=== PATIENT | male | born 1965 | race Caucasian/White ===

== ENCOUNTER 2023-06-30 11:32 | Outpatient (CLI) | payer BC, SELFPAY ==
--- NOTE | 2023-06-30 11:51 | XR_ITS ---
WS: [id number] Exam: XR knee RT 3V* [id number] Date/Time of Exam: 06/30/2023 12:13 PM Reason For Exam: Right knee pain, Swelling of joint Comparison 01/22/2018. No fracture or dislocation. No joint effusion. Mild narrowing of the medial joint compartment. Anteri or soft tissue edema noted just below the level of the patella. IMPRESSION: 1. No fracture or joint effusion. Anterior soft tissue swelling. 2. Slight narrowing of the medial joint compartment.
== END 2023-06-30 11:33 | disposition home or self-care (01) ==
PROVIDERS: PCP Nurse Practitioner Family; Visit Provider Nurse Practitioner Family
DX: M25.561 Pain in right knee (principal); M79.89 Other specified soft tissue disorders
CPT/HCPCS: 73562

== ENCOUNTER → 2023-07-15 15:54 | Outpatient (BNVA) | payer BC, SELFPAY | PROVIDERS: PCP Nurse Practitioner Family; Visit Provider Orthopaedic Surgery | DX: M48.061 Spinal stenosis, lumbar region without neurogenic claudication (principal); M48.07 Spinal stenosis, lumbosacral region; M43.16 Spondylolisthesis, lumbar region; M25.78 Osteophyte, vertebrae | CPT/HCPCS: 72100 ==

== ENCOUNTER 2023-08-12 15:36 | Outpatient (CLI) | payer BC, SELFPAY ==
--- NOTE | 2023-08-12 16:00 | MR_ITS ---
WS: [id number] MRI LUMBAR SPINE NONCONTRAST TECHNIQUE: Sagittal T1, T2 and STIR imaging. Axial T1 and T2 imaging. CLINICAL INFORMATION: lumbar pain COMPARISON: MRI 2019 FINDINGS: Mild disc bulging C4-C6 with indentation on the cervical cord and mild to moderate central canal sten osis. Mild lumbar curve. No acute compression. Disc bulging worse at L3-L4 and L4-L5. Disc bulging L3-4 has progressed. Central disc protrusion L5-S1. L1-L2: Mild facet arthropathy. Spinal canal and foramen are patent. L2-L3: No significant disc bulging. Mild facet arthropathy. Spinal canal and foramen are patent. L3-L4: Shallow central and RIGHT paracentral disc protrusion impinges the RIGHT subarticular recess a nd traversing RIGHT L4 nerve root. Moderate to severe central canal stenosis. Moderate facet arthropa thy. Mild RIGHT greater than LEFT foraminal narrowing with small foraminal protrusions. Central canal stenosis has progressed at this level. L4-L5: Central and LEFT paracentral disc protrusion with moderate central canal stenosis. Impingement of traversing LEFT greater than L5 nerve roots. Moderate facet arthropathy. Mild bilateral foraminal narrowing. L5-S1: Shallow central disc protrusion with slight effacement of the ventral thecal sac. Mild facet a rthropathy. LEFT eccentric disc osteophyte complex with moderate LEFT foraminal narrowing. RIGHT fora men is patent. Impingement of the traversing LEFT greater than RIGHT S1 nerve roots. Moderate facet a rthropathy. Visualized pelvic bony structures: Normal. Paravertebral soft tissues: Normal. IMPRESSION: 1. Moderate to severe central canal stenosis L3-4 progressed compared to previous. Impingement of tr aversing RIGHT greater than LEFT L4 nerve roots with RIGHT paracentral protrusion. 2. Moderate central canal stenosis L4-5 has progressed with impingement on the traversing LEFT great er than RIGHT L5 nerve roots. 3. Shallow central disc protrusion L5-S1 impinges the LEFT S1 nerve root in the subarticular recess. This also appears slightly progressed compared to previous. 4. Moderate LEFT L5-S1 foraminal narrowing. 5. Moderate facet arthropathy L3-L5. 6. Central disc protrusions in the cervical spine suction plate roller hand imaging at C4-C6 with mild to moderate centr al canal stenosis and indentation of the cervical cord. This can be further evaluated with cervical s pine MRI.
== END 2023-08-12 15:37 | disposition home or self-care (01) ==
LOC: RAD 15:37
PROVIDERS: PCP Nurse Practitioner Family; Visit Provider Orthopaedic Surgery
DX: M48.061 Spinal stenosis, lumbar region without neurogenic claudication (principal); M51.27 Other intervertebral disc displacement, lumbosacral region; M50.221 Other cervical disc displacement at C4-C5 level; M50.222 Other cervical disc displacement at C5-C6 level
CPT/HCPCS: 72148

== ENCOUNTER 2023-08-27 16:33 | Outpatient (CLI) | payer BC, SELFPAY ==
[2023-08-27 18:32] LABS: Add Urine Microscopic? NO; Charge for UA Resulting for Rev
[2023-08-27 18:44] LABS: Bilirubin Urine Neg (Negative); Blood Urine Neg (Negative); Glucose Urine UA Norm (Normal); Ketones Urine Negative (Negative); Leukocyte Esterase Urine Negative (Negative); Nitrate Urine Negative (Negative); Protein Urine Neg (Negative); Specific Gravity, Urine 1.015 (1.005-1.030); Urine Appearance Clear (CLEAR); Urine Color Yellow (Yellow); Urobilinogen Urine Norm (Negative); pH Urine 6 (5-7)
[2023-08-27 18:49] LABS: Basophils # 0.1 10^3/uL (0.0-0.1); Basophils % 0.9 %; Eosinophils # 0.3 10^3/uL (0.0-0.8); Eosinophils % 4.6 %; Hematocrit 42.2 % (37-53); Lymphocytes # 2.1 10^3/uL (0.8-4.8); Lymphocytes % 31.4 %; Mean Corpuscular HGB Conc 34.6 g/dL (30-55); Mean Corpuscular Hemoglobin 31.9 pg (27-33); Mean Corpuscular Volume 92.3 fl (82-101); Mean Platelet Volume 9.6 fL (7.4-10.4); Monocytes # 0.9 10^3/uL (0.2-0.9); Monocytes % 12.7 %; Neutrophils # 3.38 10^3/uL (1.8-7.7); Neutrophils % 49.8 %; Nucleated Red Blood Cells % 0 %; Platelet Count 209 10^3/cmm (157-399); Red Blood Count 4.57 10^6/uL (3.85-5.65); White Blood Count 6.78 10^3/uL (3.29-11.43)
[2023-08-27 19:03] LABS: Alanine Aminotransferase 87 U/L (0-41); Albumin Level 4.6 g/dL (3.5-5.2); Alkaline Phosphatase 60 U/L (40-130); Aspartate Amino Transferase 60 U/L (0-40); Blood Urea Nitrogen 15 mg/dL (6-20); Calcium 9.2 mg/dL (8.5-10.5); Carbon Dioxide 28 mmol/L (22-29); Globulin 2.6 g/dL (1.3-4.6); Glomerular Filtration Rate 68.5 mL/min (90-130); Glucose 95 mg/dL (65-115); Total Bilirubin 0.5 mg/dL (0.15-1.2); Total Protein 7.2 g/dL (6.6-8.7)
[2023-08-27 21:30] LABS: Anion Gap 12.3 (5-19); Chloride 104 mmol/L (98-107); Osmolality Calculated 291 mOsm/kg (285-295); Potassium 4.3 mmol/L (3.5-5.1); Sodium 140 mmol/L (136-145)
[2023-08-27 21:59] LABS: Estmated Average Glucose 120; Hemoglobin A1C 5.8 % (4.0-6.0)
== END 2023-08-27 16:34 | disposition home or self-care (01) ==
LOC: LAB 16:35
PROVIDERS: PCP Nurse Practitioner Family; Visit Provider Physician Assistant
DX: M48.062 Spinal stenosis, lumbar region with neurogenic claudication (principal); M51.36 Other intervertebral disc degeneration, lumbar region
CPT/HCPCS: 80053; 81003; 83036; 85025

== ENCOUNTER 2023-09-08 17:45 | Observation (INO) | payer BC, SELFPAY ==
[2023-09-08] VITALS (21 sets, daily range): BP systolic 90–148; BP diastolic 52–88; PULSE 50–94; RESP 14–22; TEMP 36.2–37.1; O2SAT 91–98; BMI 42.1
--- NOTE | 2023-09-08 10:07 | W.PM.OPSUD ---
Surgery/Procedure H&P Update DATE OF PROCEDURE: September 08, 2023 DATE H&P PERFORMED: 09/03/23 H&P UPDATE INFORMATION: I have reviewed H&P completed within last 30 days, I have examined patient prior to procedure and No changes to prior documentation PREOP DIAGNOSIS: Degenerative disc disease lumbar, lumbar stenosis PLANNED PROCEDURE: Operation Date: 09/08/23 11:00 Proposed Procedures p Spinal Fusion PSF L3 TO PELVIS(Not Applicable) - Josue Medina DO
[2023-09-08] MEDS: sodium chloride 0.9% 1,000 ML 30 ML IV (10:40)
[2023-09-08] MEDS: methadone 10 mg Tablet PO (10:43)
--- NOTE | 2023-09-08 12:17 | ANES.PREANE2 ---
Pre-Anesthetic Assessment Height/Weight: Height 1.7 m Weight 122 kg Temp Pulse Resp BP Pulse Ox O2 Del Method 97.6 F 50 L 16 138/88 96 Room Air 09/08/23 09:53 09/08/23 09:53 09/08/23 09:53 09/08/23 09:53 09/08/23 09:53 09/08/23 09:56 Preop Diagnosis: Degenerative disc disease lumbar, lumbar stenosis Operation Date: 09/08/23 11:00 Proposed Procedures p Spinal Fusion PSF L3 TO PELVIS(Not Applicable) - Josue Medina, DO Familial anesthetic complications: none Was Beta Manuel taken within 24 hours: N/A Was Clonidine taken within 24 hours: N/A Last intake: Intake Last Liquid Date 09/07/23 Last Liquid Time 21:00 Last Solid Date 09/07/23 Last Solid Time 18:00 Social No alcohol and No tobacco Exam alert, oriented x 3, clear to auscultation bilaterally and regular rate & rhythm Airway Submandibular: within normal limits Cervical ROM: within normal limits Mallampati: Class II Dentition: full Metabolic Morbid Obesity [facility] [place]/sk Lower Back Pain and Osteoarthritis/DJD Anesthetic Plan ASA status: 3 Anesthesia: General Medications/Allergies Home Medications Medication Instructions Recorded Confirmed Last Taken Type turmeric 400 mg capsule 400 mg PO DAILY 07/15/23 09/05/23 09/02/23 History cholecalciferol (vitamin D3) 25 25 mcg PO DAILY 09/03/23 09/05/23 09/02/23 History mcg (1,000 unit) capsule multivitamin 1 tab PO DAILY 09/03/23 09/05/23 09/02/23 History omega 5-hwy-onw-fish oil 300 1 cap PO DAILY 09/03/23 09/05/23 09/02/23 History mg-1,000 mg capsule (Fish Oil) Allergies Allergy/AdvReac Type Severity Reaction Status Date / Time No Known Allergies Allergy Verified 09/03/23 09:48 Current Medications Generic Name Dose Route Start Last Admin Trade Name Freq PRN Reason Stop Dose Admin Sodium Chloride 1,000 mls @ 30 mls/hr 09/08/23 09:45 09/08/23 10:40 Sodium Chloride 0.9% IV 09/09/23 09:44 30 mls/hr .Q24H SHANNON Administration Data Anesthesia Blood Bank 09/08/23 10:15 Blood Type O Positive Rho(D) Type Rh positive Antibody Screen Negative Cardiac Studies: No Data to Display
[2023-09-08] MEDS: ceFAZolin 2,000 MG in sodium chloride 0.9% (plus) 50 ML 100 MG IV ×2 (13:35→19:51)
[2023-09-08] MEDS: lidocaine-epi 1% PF 1:200,000 30 mL SDV 10 ML INJECTION (14:02)
[2023-09-08] MEDS: ceFAZolin 1,000 mg SDV 1000 MG IVP (14:08)
[2023-09-08] MEDS: vancomycin 1,000 MG SDV 1000 MG XX (14:20)
[2023-09-08] MEDS: heparin, porcine 1,000 unit/mL INJ 10 mL 6000 UNIT XX (14:22)
[2023-09-08] MEDS: thrombin 5,000 unit SDV 5000 UNIT XX (14:51)
--- NOTE | 2023-09-08 17:26 | XR_ITS ---
WS: [id number] INTRAOPERATIVE TECHNIQUE: 3 Spot fluoroscopic images for intraoperative purposes. FLUOROSCOPY TIME: 19 seconds CLINICAL INFORMATION: OR PICS COMPARISON: None. FINDINGS: Intraoperative changes pedicle screw fixation with dorsal interconnecting rods L2-L5 with bilateral S 1 and sacroiliac fixation screws. IMPRESSION: Images obtained for intraoperative purposes.
--- NOTE | 2023-09-08 17:42 | P.OP_ITS ---
Operative Report Date of procedure: September 08, 2023 Pre-op diagnosis: Lumbar stenosis with neurogenic claudication Post-op diagnosis: same Procedure done: 1.? L5/S1 Interbody fusion with posterolateral fusion 2.? Posterior fusion L3-pelvis 3.? Instrumentation L3-S1 4.? Lumbopelvic fusion 5. Cage L5/S1 6. open right Sacral iliac fusion 7. open left sacral iliac fusion 8. L3/4 laminectomy with partial facetectomy 9. L4/5 laminectomy with partial facetectomy 10. L5/S1 laminectomy with partial facetectomy 11. use of computer navigation / stereotactic spine 12. use of autograft from same incision 13. allograft 14. Bone marrow aspirate from right iliac crest Surgeon: Josue Medina DO Offset Duplicating Machine Operator: Steven An Offset Duplicating Machine Operator: The surgical assistant certified, Steven An, GARFIELD was needed for his expertise under the microscope. He was important and necessary throughout the procedure to complete in a safe and timely manner. He assisted with patient positioning prepping and draping tissue retraction suctioning of the operative field protection of the dural sac and tissue closure Estimated blood loss (mL): 1,500 Procedure: 1.? L5/S1 Interbody fusion with posterolateral fusion 2.? Posterior fusion L3-pelvis 3.? Instrumentation L3-S1 4.? Lumbopelvic fusion 5. Cage L5/S1 6. open right Sacral iliac fusion 7. open left sacral iliac fusion 8. L3/4 laminectomy with partial facetectomy 9. L4/5 laminectomy with partial facetectomy 10. L5/S1 laminectomy with partial facetectomy 11. use of computer navigation / stereotactic spine 12. use of autograft from same incision 13. allograft 14. Bone marrow aspirate from right iliac crest Patient is brought to the operative suite.? After undergoing anesthesia, the patient had neuro monitoring attached.? Patient was then placed in the prone position on the Azael table.? All areas of impingement were well-padded.? Patient was then prepped and draped in the normal sterile fashion.? Skin incision was then made from L3 to the sacrum.? Subperiosteal dissection was made out to the transverse processes of? L2 bilaterally, L3 bilaterally L4 bilaterally L5 bilaterally and sacral ala bilaterally.? The [facility] bone marrow aspirate kit was used to aspirate bone marrow aspir ate.? This was done by using the sharp probe to open up the bone.? Aspiration was performed and then the blunt probe was then used to dissect down to through the bone tunnel.? An aspirating well drawn back a millimeter approximately 20 cc of bone marrow aspirate was used.? Admixed with the allograft and autograft bone that will be used. Next tension was brought to placing the fiducial for the computer navigation.? 2 pins were placed into the right iliac crest.? The fiducial was attached.? The C- arm was brought in and information from the C arm was then linked to the computer used for placing the screws.? Next attention was brought to placing the pedicle screws.? This was done by using the gearshift probe.? The probe was used to identify the pedicle.? Then the pedicle feeler was used followed by placement of screw.? This was done at L3 bilaterally L4 bilaterally, L5 bilaterally and S1 bilaterally. Next tension was brought to placing the iliac screws.? This was done using the sacral ala iliac technique.? The gearshift probe linked to computer navigation was then placed through the sacral ala into the sacroiliac joint into the iliac crest.? Next the pedicle feeler was used followed by the computer navigated tap.? And then the screw was passed a 80 mm screw was placed on the right side and a 90 mm screw was placed on the left side.? Both the screws were 8.5 mm in diameter. Next attension was brought to performing the open and sacral iliac fusion.? This was done by again using the gearshift probe linked to computer navigation.? Followed by pedicle feeler followed by placing a wire and then the drill drilled over the wire and then bone graft was packed into the sacroiliac joint and into the drill hole.? And the sacroiliac screw was then placed.? This technique was done on both the right and left side. Next attention was brought to performing the laminectomy ofL5.? This was done using the high-speed bur Kerrisons and curettes.? Once the lamina was removed and then attention was brought to performing a partial facetectomy on the contralateral side.? This was done again using the high-speed bur curettes and Kerrisons.? The ligamentum flavum was taken down bilaterally from L5 to S1.? Attention was then brought to the facet on the ipsilateral side.? The facet was taken down.? The S1 nerve was decompressed as it passed around the S1 pedicle.? The laminectomy was done for purposes of decompressing the nerve as well as placement of the cage.? The L5 nerve was identified as it traversed through the L5/S1 foramen.? The thecal sac was identified and retracted.? The L5/S1 disc base was identified.? Using a knife the disc base was opened.? And then sequential ana were placed.? The first shaver was a 6 and the last shaver was a 7.? Using a pituitary and down going curette the endplates were scraped and disc material was removed from the space.? Once adequate decompression of the disc base was felt to be had.? Osteoamp sponge was packed into the anterior aspect of the disc base.? Then a size 8 cage from [facility] was placed after packing osteoamp into the cage.? While placing the cage the thecal sac and S1 nerve was protected.? C arm was used to ensure that the cages placed in the appropriate position. Next attention was brought to performing the laminectomy ofL4/5.? This was done using the high-speed bur Kerrisons and curettes.? Once the lamina was removed and then attention was brought to performing a partial facetectomy on the contralateral side.? This was done again using the high-speed bur curettes and Kerrisons.? The ligamentum flavum was taken down bilaterally from L4 to L5.? Attention was then brought to the facet on the ipsilateral side.? The facet was taken down.? The L5 nerve was decompressed as it passed around the L5 pedicle.? The L4 nerve was identified as it traversed through the L4/5 foramen.? The thecal sac was identified dura was in good repair. Next attention was brought to performing the laminectomy of L3-4.? This was done using the high-speed bur Kerrisons and curettes.? Once the lamina was removed and then attention was brought to performing a partial facetectomy on the contralateral side.? This was done again using the high-speed bur curettes and Kerrisons.? The ligamentum flavum was taken down bilaterally from L3 to L4.? Attention was then brought to the facet on the ipsilateral side.? The facet was taken down.? The L4 nerve was decompressed as it passed around the L4 pedicle.? The L3 nerve was identified as it traversed through the L3/4 foramen.? The thecal sac was identified dura was in good repair. Attention was then brought to attaching the rods to the screws placed in the L3 bilaterally L4 bilaterally L5 bilaterally and S1 bilaterally.? This was then attached to the sacroiliac screw providing the lumbopelvic fixation.? Caps were torqued into position. Locking the construct in place. Wound was copiously irrigated and then attention was brought to decorticating the facets and transverse processes laterally.? Bone that was taken down from the lamina was used along with osteoamp fibers and sponges were packed into the lateral gutters along the facet joints.? This was done bilaterally. Wound was then closed in a layered fashion starting with the thoracolumbar fascia.? 0-vicryl was used the sub cutaneous tissue was closed with 2-0 vicryl and skin with 4-0 monocryl.? Glue was then used to seal the skin and a steril dressing was applied.? Patient was then placed in the supine position. The endotracheal tube was removed and patient was transferred to the PACU in stable condition.
[2023-09-08 19:40] LABS: Hematocrit 36.2 % (37-53)
[2023-09-08] MEDS: lactated ringers 1,000 ML 90 ML IV (19:50)
[2023-09-08] MEDS: ketorolac 30 mg/mL INJ IVP (20:11)
[2023-09-08] MEDS: docusate sodium 100 mg Capsule PO (21:26)
[2023-09-09] VITALS (10 sets, daily range): BP systolic 113–147; BP diastolic 61–77; PULSE 64–80; RESP 15–18; TEMP 36.2–36.8; O2SAT 92–96
[2023-09-09] MEDS: HYDROcodone-acetaminophen 10-325 mg Tablet PO ×5 (00:12→21:09)
[2023-09-09] MEDS: ceFAZolin 2,000 MG in sodium chloride 0.9% (plus) 50 ML 100 MG IV ×2 (01:36→08:40)
[2023-09-09 06:38] LABS: Hematocrit 31.9 % (37-53)
--- NOTE | 2023-09-09 07:29 | PM.PN ---
Subjective Subjective: POD 1 Patient resting comfortably. Denies chest pain, shortness of breath, headaches. Vitals/I&O/Wt Last Vital Signs Temp 97.1 F L 09/09/23 03:30 Pulse 67 09/09/23 05:04 Resp 17 09/09/23 03:30 BP 116/77 09/09/23 03:30 Pulse Ox 92 09/09/23 03:30 O2 Del Method Nasal Cannula 09/08/23 20:53 O2 Flow Rate 3 09/08/23 20:53 09/08/23 09/09/23 09/09/23 22:59 06:59 14:59 Intake Total 1950 / 1999 50 / 2050 1000 / 1000 Output Total 2300 / 2300 705 / 3005 Balance -350 / -300 -655 / -955 1000 / 1000 Weight last 48 hrs Weight 272 lb 6.4 oz Weight 269 lb Weight 268 lb 15.423 oz Physical Exam Narrative: Patient presents alert and oriented x3 with a good general appearance normal mood and affect. Normal coordination normal stability. Mild tenderness around the incisional site with the incision appear to have some bloody drainage Hemovac drain intact with 555Ml output. No signs of erythema or drainage. No signs of infection. Patient denies any fevers or chills. 5/5 motor strength both lower extremities with negative straight leg raise bilaterally. Calves are supple no medial thigh tenderness. Pulses are 2+ at the dorsalis pedis and posterior tibial region. Good capillary refill throughout normal sensation light touch both lower extremities. Urinary Catheter Management: Fay: Cath Placed During This Visit: yes Reason for Continuing Indwelling Catheter: Other Urinary Catheter Date of Insertion: 09/08/23 Urinary Catheter Time of Insertion: 13:45 Data 09/09/23 06:05 A&P Assessment and plan (1) Status post lumbar spinal fusion: Hemovac drain was taken to gravity as it had 555 mL of output. We will continue Hemovac drain today. Change dressing with Silverlon as needed. Lumbar corset when the patient is up mobilizing for compression. Discontinue Fay catheter. Continue incentive spirometer for pulmonary toilet. Patient is high risk of bleeding therefore stay with SCDs for mechanical DVT prophylaxis. Hopeful discharge home tomorrow. Attestations Medical Necessity Statement*: hopeful discharge home tomorrow. Coding Level of Care Code Acute Code for Chg Fwd Diagnoses Status post lumbar spinal fusion Z98.1
[2023-09-09] MEDS: docusate sodium 100 mg Capsule PO ×2 (08:38→17:30)
[2023-09-09] MEDS: lactated ringers 1,000 ML 90 ML IV (08:38)
[2023-09-09] MEDS: multivitamin therapeutic Tablet 1 TAB PO (08:38)
[2023-09-09] MEDS: ketorolac 30 mg/mL INJ IVP (08:52)
--- NOTE | 2023-09-09 09:47 | PC.CHAP ---
Pastoral Care Encounter/Spiritual Assessment Type of Contact [] Declined preparation supervisor visit [] Patient/Family/Request visit [] Outpatient visit [] Follow-up visit [] Physician referral [] Code/Alert [x] Routine visit [] Staff referral [] Actively dying [] Patient sleeping [x] Family support [] [] Out of room [] Palliative care [] [] Receiving care in room [] Pre-surgical visit [] Trauma [] Long length of stay [] ICU visit [] Other: Relational/Emotional Strength [x] Patient feels connected with others/family/visitors/staff [] Distress [] Loneliness/isolation [] Abandonment Spirituality of Patient [x] Person of Stella [x] Attends Gnosticism of their Stella [x] Believes in Prayer [x] Reads Bible or Scientologist materials [] There are Spiritual issues to be addressed Internal [employer] Sub[employer]sembler Interventions [x] Prayer [x] Active listening [] Non-anxious presence [x] Spiritual/emotional support [] Crisis/trauma care [] Spiritual counseling [] Bereavement support [] Provided bereavement packet [] Provided Bible/devotional materials [] Provided toy/stuffed animal, coloring book to patient or family member [] Provided Communion [] Anointing/[place] [] Salvation [x] Completed spiritual assessment [] Other: Impact on Illness or Injury [] Angry [] Fearful [] Anxious [] Often cries [] Exhaustion [] Unable to work [] Unable to attend pentecostalism [] Unable to walk/stand [] Unable to read [] Unable to drive [] Unable to eat/drink [] Unable to sleep [] Unable to be with family [] Patient intubated [] Other: Summary Time spent with patient 15 min
[2023-09-09] MEDS: chlorPROMazine 25 mg Tablet PO (16:17)
[2023-09-09] MEDS: magnesium hydroxide 30 mL UDC PO (21:20)
[2023-09-10] VITALS: BP 116/71; PULSE 67; RESP 18; TEMP 36.3; O2SAT 96
[2023-09-10] MEDS: lactated ringers 1,000 ML 90 ML IV (00:41)
[2023-09-10 04:09] VITALS: BP 133/74; PULSE 63; RESP 16; TEMP 37.1; O2SAT 95
[2023-09-10 04:56] VITALS: PULSE 62
--- NOTE | 2023-09-10 06:40 | PM.PN ---
Subjective Subjective: POD 2 Patient resting comfortably. Mild back pain legs have improved. Denies shortness of breath, chest pain, headaches. Hiccups have resolved as well. Vitals/I&O/Wt Last Vital Signs Temp 98.7 F 09/10/23 04:09 Pulse 62 09/10/23 04:56 Resp 16 09/10/23 04:09 BP 133/74 09/10/23 04:09 Pulse Ox 95 09/10/23 04:09 O2 Del Method Room Air 09/10/23 04:09 O2 Flow Rate 2 09/09/23 20:44 09/09/23 09/09/23 09/10/23 14:59 22:59 06:59 Intake Total 1410 / 1410 1120 / 2530 Output Total 1650 / 1650 150 / 1800 85 / 1885 Balance -240 / -240 970 / 730 -85 / 645 Weight last 48 hrs Weight 278 lb 2 oz Weight 272 lb 6.4 oz Weight 269 lb Weight 268 lb 15.423 oz Physical Exam Narrative: Patient presents alert and oriented x3 with a good general appearance normal mood and affect. Normal coordination normal stability. Mild tenderness around the incisional site with the incision appear to be healing nicely. No signs of erythema or drainage. No signs of infection. Patient denies any fevers or chills. 5/5 motor strength both lower extremities with negative straight leg raise bilaterally. Calves are supple no medial thigh tenderness. Pulses are 2+ at the dorsalis pedis and posterior tibial region. Good capillary refill throughout normal sensation light touch both lower extremities. Urinary Catheter Management: Fay: Cath Placed During This Visit: yes, but has since been removed by the nurse Reason for Continuing Indwelling Catheter: Decision to DC Catheter Urinary Catheter Date of Insertion: 09/08/23 Urinary Catheter Time of Insertion: 13:45 Date Urinary Catheter Removed: 09/09/23 Time Urinary Catheter Discontinued: 10:07 Data 09/09/23 06:05 A&P Assessment and plan (1) Status post lumbar spinal fusion: Discontinue Hemovac drain. Dressing change with Silverlon. Continue incentive spirometer at home. Discharge home later this morning. Continue walking program with no bending lifting or twisting activities. See him back in the office in 1 week's time for a wound check. Attestations Medical Necessity Statement*: DC home this morning. Coding Level of Care Code Acute Code for Chg Fwd Diagnoses Status post lumbar spinal fusion Z98.1
--- NOTE | 2023-09-10 06:46 | PC.NURSE ---
Dressing and hemavac was removed per verbal order from boston ROSARIO at bedside. Dressing was replaced with a silverlon dressing. Education was provided on caring for the wound and dressing were provided. All questions and concerns answered.
[2023-09-10] MEDS: HYDROcodone-acetaminophen 10-325 mg Tablet PO (06:55)
[2023-09-10] MEDS: ketorolac 30 mg/mL INJ IVP (07:40)
[2023-09-10 07:52] VITALS: BP 142/74; PULSE 81; RESP 20; O2SAT 94
--- NOTE | 2023-09-15 12:19 | P.DS_ITS ---
Discharge Providers Date of Admission: 09/08/23 17:45 Date of Discharge: September 10, 2023 Attending Provider at Admission: Josue Medina DO Attending Provider at Discharge: Josue Medina DO Primary Care Provider: FELECIA Arellano Diagnoses at Discharge Discharge Diagnosis (1) Status post lumbar spinal fusion: Status: Acute Reason for Visit Reason for Visit: M48.062, M51.36, M54.16 Physical Exam Urinary Catheter Management: Fay: Cath Placed During This Visit: yes, but has since been removed by the nurse Reason for Continuing Indwelling Catheter: Decision to DC Catheter Urinary Catheter Date of Insertion: 09/08/23 Urinary Catheter Time of Insertion: 13:45 Date Urinary Catheter Removed: 09/09/23 Time Urinary Catheter Discontinued: 10:07 Discharge Data Studies Completed and Pending Completed Studies During Hospitalization Category Date Time Status XR lumbar spine 2-3V* [id number] Routine Exams 09/08/23 17:26 Completed Laboratory Results Hgb 11.10 g/dL (11.27-16.99) L 09/09/23 06:05 Hct 31.9 % (37-53) L 09/09/23 06:05 Blood Type O Positive 09/08/23 10:15 Rho(D) Type Rh positive 09/08/23 10:15 Antibody Screen Negative 09/08/23 10:15 Vitals Last Vital Signs Temp 98.7 F 09/10/23 04:09 Pulse 81 09/10/23 07:52 Resp 20 H 09/10/23 07:52 BP 142/74 09/10/23 07:52 Pulse Ox 94 09/10/23 07:52 O2 Del Method Room Air 09/10/23 07:52 O2 Flow Rate 2 09/09/23 20:44 Discharge Plan Discharge Patient Disposition: Home Condition: Stable Prescriptions: New hydrocodone-acetaminophen 10-325 mg Tablet 1 tab PO Q4H PRN (Reason: Postoperative pain) Qty: 30 0RF Continued turmeric 400 mg capsule 400 mg PO DAILY multivitamin Tablet 1 tab PO DAILY cholecalciferol (vitamin D3) 25 mcg (1,000 unit) capsule 25 mcg PO DAILY omega 8-txx-owi-fish oil [Fish Oil] 300-1,000 mg capsule 1 cap PO DAILY Discharge Orders: Discharge Order (Routine); Ordered 09/10/23 Ordered By: Steven An Referrals: Josue Medina DO [Physician] - (We have notified your physician's clinic of the need for a follow-up appointment to be scheduled. If you have not heard from them within the next 2 business days, please call them directly. ) Lourdes Fernando FNP [Primary Care Provider] - 09/16/23 8:00 am Discharge Diet: Advance as tolerated Discharge Activity: Limit activity as instructed Patient Instructions: Hydrocodone/Acetaminophen (By mouth), Lumbar Spinal Fusion (GEN), Opioid Safety Activity Restrictions/Additional Instructions: Thank you for choosing [facility] for your care! The following is a list of instructions, from your provider, to follow upon your discharge to ensure you have the optimal recovery from your recent injury or surgery. Follow-up care is a morris part of your treatment and safety. Be sure to make and go to all appointments and call your doctor if you are having problems. If you do not already have a follow-up appointment made, call Dr. Medina's] office in the next 1-3 days to make follow up appointment for [1-2] weeks at [phone]. It is also a good idea to know your test results and keep a list of the medicines you take. Medications will be prescribed for you at your provider's discretion. These medications are to be used as instructed; if they are taken more often that prescribed they will not be refilled early and in most cases will not be refilled at all. > When a refill is needed, you should contact arabella cerda 2-3 business days before your prescription runs out. Medications will NOT be refilled by director clinical operations providers after hours! > Many pain medications contain Tylenol (Acetaminophen). Do not consume more than 4,000 mg of Tylenol per day in total with any combination of medications. > Pain medications can cause constipation. Please use an over the counter stool softener as directed, while taking pain medications. Consult your local pharmacist with questions or recommendations on stool softeners. If constipation persists, contact our office or your primary care provider. > While under our care, you are not to receive pain medications or other controlled substances from any other provider unless our office is notified and approves. Any attempts to do so will result in refusal to prescribe any further pain medications and possible dismissal from our practice. ? Walking is essential for the healing process after surgery. We would like you to slowly advance your walking. This should be done on relatively flat clear ground (inside or out) or can be done on a treadmill. Remember this goal does not have to happen all at once, slowly increase your distance and duration. This can be broken into more more than one walk per day as tolerated. Patients who walk as directed after surgery rarely require Physical Therapy. In the unlikely event this issue arises your provider will direct hospital staff to make the appropriate arrangements. ? No lifting over 5 pounds {a gallon of milk) or bending/twisting until further notice. Each of these activities places an unnecessary amount of stress onto the body and can impede the delicate healing process. > Instead of bending at the waist, keep your back straight and bend at the knees. > Instead of twisting your torso, keep your back straight and turn your entire body with your feet. ? You may sleep in any position which makes you comfortable. Many patients find comfort sleeping in a reclining chair. It is not abnormal to have difficulty sleeping for the first several weeks following your surgery. We recommend trying Benadry! or Tylenol PM as directed to help with your sleeping difficulties. Both medications are over the counter and available without prescription. ? NO SMOKING!!! Smoking dramatically increases the probability of developing postoperative wound infections. ? Common complaints after lumbar and/or thoracic spine surgery include, but are not limited to: numbness and/or tingling in the legs, pain around the incision and surrounding tissues, muscle spasms, or stiffness of the middle to low back. Contact our office if these symptoms persist or if an acute change occurs. ? No driving for the first 3-5days, and not while taking narcotics until seen at your follow-up appointment and cleared. There are no restrictions for riding on short trips, however if you take a longer trip, arrangements should be made to make regular stops to get out of the vehicle and stretch . ? Swelling is an unfortunate event that will take place with any surgery and is the primary source of your postoperative discomfort. While walking and regular approved activities helps control inflammation, there are additional steps you can take to minimize swelling. > Place ice over the surgical site and surrounding tissue for twenty minutes, followed by applying a low/medium heat (heating pad) for an additional twenty minutes every 1-2 hours as needed for painrelief. > You may use of over the counter anti-inflammatory medications (Ibupr ofen, Motrin, Aleve, Advil, etc) as directed on the package label. These types of medicines will significantly reduce the amount of discomfort you experience after surgery from swelling. It should be noted that if you have and allergy to any of these medications, or a history of ulcers or kidney disease you should consult you primary care provider prior to starting these medications. Discharge Attestations Time Spent in Discharge Care*: less than 30 min Quality Metrics Clinical Quality Measures [ No reported AMI, CVA or VTE this stay] Coding Level of Care Code Acute Code for Chg Fwd Diagnoses Status post lumbar spinal fusion Z98.1
== END 2023-09-10 09:30 | disposition home or self-care (01) ==
LOC: MEDSURG 17:46
PROVIDERS: Anesthesiology; Admitting Provider Orthopaedic Surgery; PCP Nurse Practitioner Family; Visit Provider Orthopaedic Surgery
PROC: (CPT 20930; principal; 2023-09-08 10:40)
DX: M48.062 Spinal stenosis, lumbar region with neurogenic claudication (principal); E66.01 Morbid (severe) obesity due to excess calories; Z68.41 Body mass index [BMI] 40.0-44.9, adult
CPT/HCPCS: 20930; 20936; 20939; 22614 ×2; 22633; 22842; 22848; 22853; 27280; 61783; 63052; 63053 ×2; 36415; 51702; 72100; 76000; 85014; 85018; 86850; 86900; 97161; 97530; C1713; G0378; J0330; J0690; J1100; J1170; J1644; J1885; J2405; J2704; J2710; J3010; J3370; J3490; J7030; J7120; P9045; Q0161; Q3014

== ENCOUNTER → 2023-09-23 08:28 | Outpatient (BNVA) | payer BC, SELFPAY | PROVIDERS: PCP Nurse Practitioner Family; Visit Provider Orthopaedic Surgery | DX: Z98.1 Arthrodesis status (principal); Z47.89 Encounter for other orthopedic aftercare | CPT/HCPCS: 72100 ==

== ENCOUNTER → 2023-10-21 13:08 | Outpatient (BNVA) | payer BC, MEDICAID, SELFPAY | PROVIDERS: PCP Nurse Practitioner Family; Visit Provider Physician Assistant | DX: Z98.1 Arthrodesis status (principal); Z47.89 Encounter for other orthopedic aftercare | CPT/HCPCS: 72100 ==

== ENCOUNTER → 2023-11-11 15:47 | Outpatient (BNVA) | payer BC, MEDICAID, SELFPAY | PROVIDERS: PCP Nurse Practitioner Family; Visit Provider Orthopaedic Surgery | DX: Z98.1 Arthrodesis status (principal); Z47.89 Encounter for other orthopedic aftercare | CPT/HCPCS: 72100 ==

== ENCOUNTER → 2023-11-25 08:40 | Outpatient (BNVA) | payer BC, MEDICAID, SELFPAY | PROVIDERS: PCP Nurse Practitioner Family; Visit Provider Orthopaedic Surgery | DX: Z98.1 Arthrodesis status (principal); Z47.89 Encounter for other orthopedic aftercare | CPT/HCPCS: 72100 ==

== ENCOUNTER → 2024-02-17 08:40 | Outpatient (BNVA) | payer MEDICAID, SELFPAY | PROVIDERS: PCP Nurse Practitioner Family; Visit Provider Orthopaedic Surgery | DX: Z98.1 Arthrodesis status (principal); M54.2 Cervicalgia | CPT/HCPCS: 72050; 72100 ==

== ENCOUNTER 2024-04-07 08:30 | Outpatient (CLI) | payer BC, MEDICAID, SELFPAY ==
--- NOTE | 2024-04-07 09:13 | MR_ITS ---
WS: [id number] MRI LUMBAR SPINE NONCONTRAST TECHNIQUE: Sagittal T1, T2 and STIR imaging. Axial T1 and T2 imaging. CLINICAL INFORMATION: ARTHRODESIS STATUS COMPARISON: MRI 2022 FINDINGS: Postoperative changes are new compared to previous with pedicle screw fixation with dorsal interconne cting rods at L3-S2 with bilateral sacroiliac fixation screws. Dorsal decompressive laminectomy defec ts. No high-grade central canal stenosis. Normal postoperative changes in the dorsal subcutaneous sof t tissues and laminectomy bed. Small benign seroma or resolving blood products in the laminectomy bed measuring 4.3 x 1.5 cm. No mass effect. Interbody fusion graft L5-S1. Small central disc osteophyte protrusions in the cervical spine on the embedded software developer imaging at C4-C6 with sl ight indentation cervical cord and mild central canal stenosis. L1-L2: Minimal annular bulging. Mild facet arthropathy. Small canal and foramen are patent. L2-L3: Mild annular bulging. Mild central canal stenosis. Mild facet arthropathy. Foramen are patent. L3-L4: Spinal canal and foramen are patent. Laminectomy defects. L4-L5: Mild annular bulging with slight effacement of the ventral thecal sac. Laminectomy defects. Mi ld foraminal narrowing. L5-S1: Interbody fusion graft. Mild LEFT bony foraminal narrowing with LEFT eccentric osteophytic rid ging. RIGHT foramen and spinal canal are patent. MR/MR lumbar spine wo con* [id number] IMPRESSION: 1. Postoperative changes are new from previous with laminectomy defects. 2. No significant central canal stenosis. 3. Mild annular bulging L4-5 with slight effacement of the ventral thecal sac. Mild bilateral foraminal narrowing. 4. Endplate ridging L5-S1 with mild LEFT foraminal narrowing with encroachment on the exiting LEFT L5 nerve root. 5. Mild central canal stenosis L2-3 slightly progressed compared to previous 6. No other acute findings.
--- NOTE | 2024-04-07 09:13 | MR_ITS ---
WS: [id number] MRI CERVICAL SPINE NONCONTRAST TECHNIQUE: Sagittal T1, T2 and STIR imaging. Axial T2, gradient, and fiesta imaging. CLINICAL INFORMATION: cervicalgia COMPARISON: None. FINDINGS: Straightening of the normal cervical lordosis. Small disc osteophyte protrusions at C4-C6. Slight ind entation of the cervical cord. Cord signal is normal. C2-C3: Mild facet arthropathy. Spinal canal and foramen are patent. C3-C4: No significant disc bulging. Mild facet arthropathy. Spinal canal and foramen are patent. C4-C5: Central disc osteophyte protrusion with indentation of the cervical cord. Mild central canal s tenosis. Mild facet arthropathy. Mild LEFT greater than RIGHT bony foraminal narrowing. C5-C6: Disc osteophyte complex with slight indentation cervical cord. Mild central canal stenosis. Mo derate RIGHT and mild LEFT bony foraminal narrowing. Mild facet arthropathy. C6-C7: Disc osteophyte complex with slight indentation on the cervical cord. Mild central canal steno sis. Moderate LEFT and mild RIGHT bony foraminal narrowing. Mild facet arthropathy. C7-T1: Mild LEFT and no significant RIGHT foraminal narrowing. Spinal canal is patent. Uncovertebral joint hypertrophy. Visualized brain stem structures: Normal. Prevertebral soft tissues: Normal. MR/MR cervical spin wo con* [id number] IMPRESSION: 1. Straightening of the normal cervical lordosis with disc osteophyte protrusi ons at C4-C5 C5-C6 and C6-C7 with slight indentation of the cervical cord and m ild central canal stenosis at these levels. 2. Moderate RIGHT C5-C6 and moderate LEFT C6-7 bony foraminal narrowing. 3. Mild LEFT C7-T1 bony foraminal narrowing.
== END 2024-04-07 08:31 | disposition home or self-care (01) ==
LOC: RAD 08:30
PROVIDERS: PCP Nurse Practitioner Family; Visit Provider Orthopaedic Surgery
DX: M99.61 Osseous and subluxation stenosis of intervertebral foramina of cervical region (principal); Z98.1 Arthrodesis status; M51.36 Other intervertebral disc degeneration, lumbar region
CPT/HCPCS: 72141; 72148

== ENCOUNTER → 2025-06-10 13:49 | Outpatient (BNVA) | payer BC, SELFPAY | PROVIDERS: PCP Nurse Practitioner Family; Visit Provider Emergency Medicine | DX: Z18.9 Retained foreign body fragments, unspecified material (principal); S80.852A Superficial foreign body, left lower leg, initial encounter; X58.XXXA Exposure to other specified factors, initial encounter | CPT/HCPCS: 73590 ==

== ENCOUNTER → 2025-06-30 14:48 | Outpatient (BNVA) | payer BC, SELFPAY | PROVIDERS: PCP Nurse Practitioner Family; Visit Provider Orthopaedic Surgery | DX: M48.02 Spinal stenosis, cervical region (principal); Z98.1 Arthrodesis status | CPT/HCPCS: 72050 ==

== ENCOUNTER 2025-07-18 07:01 | Outpatient (CLI) | payer BC, MEDICAID, SELFPAY ==
--- NOTE | 2025-07-18 07:15 | MR_ITS ---
WS: [id number] MRI CERVICAL SPINE NONCONTRAST TECHNIQUE: Sagittal T1, T2 and STIR imaging. Axial T2, gradient, and fiesta imaging. CLINICAL INFORMATION: Neck pain COMPARISON: MRI 04/07/2024 FINDINGS: Straightening of the normal cervical lordosis. Disc osteophyte protrusions at C4-C6. C2-C3: Mild facet arthropathy. Spinal canal and foramen are patent. C3-C4: Mild facet arthropathy. Mild bilateral bony foraminal narrowing. Spinal canal is patent. C4-C5: Central disc osteophyte protrusion with indentation on the cervical cord. Moderate central canal stenosis. Mild LEFT foraminal narrowing. Mild facet arthropathy. C5-C6: Disc osteophyte complex with mild central canal stenosis. Slight indentation of the cervical cord. Moderate RIGHT foraminal narrowing. Moderate facet arthropathy. C6-C7: LEFT paracentral disc osteophyte protrusion with indentation on the LEFT ventral cervical cord. Mild to moderate LEFT greater than RIGHT foraminal narrowing. Moderate facet arthropathy. C7-T1: Moderate LEFT and mild RIGHT bony foraminal narrowing. Uncovertebral joint hypertrophy. Visualized brain stem structures: Normal. Prevertebral soft tissues: Normal. MR/MR cervical spin wo con* [id number] IMPRESSION: 1. Central disc osteophyte protrusion C4-5 with moderate central canal stenosi s and indentation of the cervical cord. This appears slightly progressed compar ed to previous. 2. Mild central canal stenosis C5-C6 and C6-C7 appears slightly progressed at C6-7. 3. Mild to moderate bony foraminal narrowing worse at RIGHT C5-6, LEFT C6-7 an d LEFT C7-T1
== END 2025-07-18 07:02 | disposition home or self-care (01) ==
LOC: RAD 07:02
PROVIDERS: PCP Nurse Practitioner Family; Visit Provider Orthopaedic Surgery
DX: M48.02 Spinal stenosis, cervical region (principal); M25.78 Osteophyte, vertebrae; M47.892 Other spondylosis, cervical region
CPT/HCPCS: 72141

== ENCOUNTER → 2025-07-26 09:08 | Outpatient (BNVA) | payer BC, MEDICAID, SELFPAY | PROVIDERS: PCP Nurse Practitioner Family; Visit Provider Orthopaedic Surgery | DX: Z01.818 Encounter for other preprocedural examination (principal); M54.12 Radiculopathy, cervical region; G95.89 Other specified diseases of spinal cord; R53.1 Weakness; R26.89 Other abnormalities of gait and mobility | CPT/HCPCS: 80053; 81003; 85025 ==

== ENCOUNTER 2025-08-31 14:11 | Observation (INO) | payer BC, MEDICAID, SELFPAY ==
[2025-08-31] VITALS (19 sets, daily range): BP systolic 132–193; BP diastolic 61–98; PULSE 49–82; RESP 16–24; TEMP 36.2–36.8; O2SAT 90–97; BMI 41.5; BMI 43.1
--- NOTE | 2025-08-31 08:58 | ANES.PREANE2 ---
Pre-Anesthetic Assessment Height/Weight: Height 1.7 m Weight 120.202 kg Temp Pulse Resp BP Pulse Ox O2 Del Method 97.9 F 49 L 18 132/75 96 Room Air 08/31/25 08:22 08/31/25 08:22 08/31/25 08:22 08/31/25 08:22 08/31/25 08:22 08/31/25 08:22 Preop Diagnosis: Cervical stenosis with radiculopathy Operation Date: 08/31/25 09:40 Proposed Procedures p Anterior Cervical Discectomy & Fusion ACDF(Not Applicable) - Josue Medina, DO Familial anesthetic complications: When he went home after a surgery in [place] he experienced heart burn and then his face and chest became very red and flushed. Went to ER and they told him it was likely an anesthesia reaction. They gave benadryl. Medications given during that surgery includedd propofol, fentanyl, lidocaine, versed, decadron, emend, zofran, ketroloac, cefoxitin. prior surgery here with fortunato he received propofol, lidocaine, versed, decadron, zofran and did well with no issues. Recommend avoiding cefoxitin Was Beta Manuel taken within 24 hours: N/A Was Clonidine taken within 24 hours: N/A Last intake: Intake Last Liquid Date 08/30/25 Last Liquid Time 22:00 Last Solid Date 08/30/25 Last Solid Time 20:00 Social No alcohol and No tobacco Exam alert, oriented x 3, clear to auscultation bilaterally and regular rate & rhythm Airway Mallampati: Class IV Dentition: chipped Comments: Comments: large neck and full ricketts Metabolic Morbid Obesity Anesthetic Plan ASA status: 3 Anesthesia: General Risk of > 500 ml blood loss (7ml/kg in children): No Medications/Allergies Home Medications ?Medication ?Instructions ?Recorded ?Confirmed ?Last Taken ?Type turmeric 400 mg capsule 400 mg PO DAILY 07/15/23 08/31/25 08/30/25 History cholecalciferol (vitamin D3) 25 25 mcg PO DAILY 09/03/23 08/31/25 08/30/25 History mcg (1,000 unit) capsule multivitamin 1 tab PO DAILY 09/03/23 08/31/25 08/30/25 History omega 6-jwz-cno-fish oil 300 1 cap PO DAILY 09/03/23 08/31/25 1 Month Ago History mg-1,000 mg capsule (Fish Oil) ~07/30/25 Allergies Allergy/AdvReac Type Severity Reaction Status Date / Time acetaminophen (From Vicodin) Allergy Mild ADR-Vomitin Verified 08/30/25 12:14 g hydrocodone (From Vicodin) Allergy Mild ADR-Vomitin Verified 08/30/25 12:14 g sulfamethoxazole (From Allergy Mild ALGY-Rash Verified 08/30/25 12:14 Bactrim) trimethoprim (From Bactrim) Allergy Mild ALGY-Rash Verified 08/30/25 12:14 Current Medications Generic Name Dose Route Start Last Admin Trade Name Freq PRN Reason Stop Dose Admin Sodium Chloride 1,000 mls @ 30 mls/hr 08/31/25 08:15 08/31/25 08:48 Sodium Chloride 0.9% IV 09/01/25 08:14 30 mls/hr .Q24H SHANNON Administration PFSH Anesthesia Social History Smoking and tobacco/nicotine status: never used tobacco/nicotine Data Anesthesia Cardiac Studies: Holter Monitor 07/13/25
--- NOTE | 2025-08-31 10:24 | W.PM.OPSUD ---
Surgery/Procedure H&P Update DATE OF PROCEDURE: August 31, 2025 DATE H&P PERFORMED: 08/18/25 H&P UPDATE INFORMATION: I have reviewed H&P completed within last 30 days, I have examined patient prior to procedure and No changes to prior documentation PREOP DIAGNOSIS: Cervical stenosis with radiculopathy PLANNED PROCEDURE: Operation Date: 08/31/25 09:40 Proposed Procedures p Anterior Cervical Discectomy & Fusion ACDF(Not Applicable) - Josue Medina DO
[2025-08-31] MEDS: ceFAZolin 3,000 MG in sodium chloride 0.9% (plus) 100 ML 200 MG IV ×2 (11:08→19:54)
[2025-08-31] MEDS: lidocaine-epi 1% 20 mL INJ INJECTION (12:31)
--- NOTE | 2025-08-31 13:49 | PM.OP ---
Operative Report Date of procedure: August 31, 2025 Pre-op diagnosis: Cervical stenosis with radiculopathy Post-op diagnosis: same Procedure done: 1. Anterior discectomy C4/5 2. Anterior diskectomy C5/6 3. Anterior discectomy C6/7 4. Insertion of cage C4/5 5. Insertion of cage C5/6 6. Insertion of Cage C6/7 7. Instrumentation with anterior plate from C4-C7 8. Use of allograft Surgeon: Josue Medina DO Estimated blood loss (mL): 15 Procedure: 1. Anterior discectomy C4/5 2. Anterior diskectomy C5/6 3. Anterior discectomy C6/7 4. Insertion of cage C4/5 5. Insertion of cage C5/6 6. Insertion of Cage C6/7 7. Instrumentation with anterior plate from C4-C7 8. Use of allograft The patient was taken to the operating room, where he underwent general endotracheal anesthesia without complications. He was then positioned supine on the operating table, and all areas of impingement were well padded. The arms were carefully padded and tucked at his sides. A roll was placed between the shoulder blades.. An x-ray was done to determine the appropriate level for the skin incision. The entire neck was then sterilely prepped and draped in the usual fashion. Neuromonitoring was attached prior to prepping. A transverse skin incision was made and carried down to the platysma muscle. This was then split in line with its fibers. Blunt dissection was carried down medial to the carotid sheath and lateral to the trachea and esophagus until the anterior cervical spine was visualized. A needle was placed into a disc and an x-ray was done to determine its location. The longus colli muscles were then elevated bilaterally with the electrocautery unit. Self-retaining retractors were placed deep to the longus colli muscle. Attention was brought to the C4/5 level that was confirmed on x-ray. A caspar pin was placed into the C4 vertebrae and the C5 vertebrae. The disk space was then distracted. The microscope was then brought in. A radical anterior discectomies were performed at C4/5. This included complete removal of the anterior annulus, nucleus, and posterior annulus. The posterior longitudinal ligament was removed as were the posterior osteophytes. Foraminotomies were then accomplished bilaterally. This was done using a high speed melecio, kerrison rongeurs and curretes Once all of this was accomplished, the curved currette was used to check for any residual compression. The central canal was wide open as were the foramen. A high-speed bur was used to remove the cartilaginous endplates above and below the interspace. Bleeding cancellous bone was exposed. The disc space were measured and appropriate size cage were placed sterilely onto the field. Allograft graft was packed into the cages. The cage was then placed and there was good juxtaposition against the bleeding decorticated surfaces and good distraction of each interspace. Attention was brought to the next interspace. The [place] pins were removed. Bone wax was used to prevent any bleeding from occurring at the pin sites. Attention was brought to the C5/6 level that was confirmed on x-ray. A caspar pin was placed into the C5 vertebrae and the C6 vertebrae. The disk space was then distracted. The microscope was then brought in. A radical anterior discectomies were performed at C5/6. This included complete removal of the anterior annulus, nucleus, and posterior annulus. The posterior longitudinal ligament was removed as were the posterior osteophytes. Foraminotomies were then accomplished bilaterally. This was done using a high speed melecio, kerrison rongeurs and curretes Once all of this was accomplished, the curved currette was used to check for any residual compression. The central canal was wide open as were the foramen. A high-speed bur was used to remove the cartilaginous endplates above and below the interspace. Bleeding cancellous bone was exposed. The disc space were measured and appropriate size cage were placed sterilely onto the field. Allograft graft was packed into the cages. The cage was then placed and there was good juxtaposition against the bleeding decorticated surfaces and good distraction of each interspace. Attention was brought to the next interspace. The [place] pins were removed. Bone wax was used to prevent any bleeding from occurring at the pin sites. Attention was brought to the C6/7 level that was confirmed on x-ray. A caspar pin was placed into the C6 vertebrae and the C7 vertebrae. The disk space was then distracted. The microscope was then brought in. A radical anterior discectomies were performed at C6/7. This included complete removal of the anterior annulus, nucleus, and posterior annulus. The posterior longitudinal ligament was removed as were the posterior osteophytes. Foraminotomies were then accomplished bilaterally. This was done using a high speed melecio, kerrison rongeurs and curretes Once all of this was accomplished, the curved currette was used to check for any residual compression. The central canal was wide open as were the foramen. A high-speed bur was used to remove the cartilaginous endplates above and below the interspace. Bleeding cancellous bone was exposed. The disc space were measured and appropriate size cage were placed sterilely onto the field. Allograft graft was packed into the cages. The cage was then placed and there was good juxtaposition against the bleeding decorticated surfaces and good distraction of each interspace. The [place] pins were removed. Bone wax was used to prevent any bleeding from occurring at the pin sites. The appropriate size anterior cervical locking plate was chosen and bent into gentle lordosis. Two screws were then placed into each of the vertebral bodies at C4, C5, C6 and C7. There was excellent purchase. A final x-ray was done confirming good position of the hardware and Cages. The locking screws were then applied, also with excellent purchase. Following a final copious irrigation, there was good hemostasis and no dural leaks. The carotid pulse was strong. The wounds were then closed in layers using 2-0 Vicryl suture for the platysma muscle, 2-0 Vicryl suture for the subcutaneous tissue, and 4-0 monocryl suture in a subcuticular skin closure. Glue was placed followed by application of a sterile dressing. The drain was hooked to bulb suction. A soft collar was applied. The patient was then carefully returned to the supine position on his hospital bed where he was reversed and extubated and taken to the recovery room having tolerated the procedure well.
[2025-08-31] MEDS: fentaNYL 50 mcg/mL INJ 2mL IVP (14:06)
--- NOTE | 2025-08-31 15:28 | XR_ITS ---
WS: [id number] Exam: XR cervical spine 3V* [id number] Date/Time of Exam: 08/31/2025 3:28 PM Reason For Exam: or pic, acdf DLP: AP and lateral intraoperative images of the C-spine are obtained. Images were obtained for intraoperative visualization purposes only.
[2025-08-31] MEDS: oxyCODONE 5 mg IR Tab/Cap PO ×2 (20:02→23:59)
[2025-09-01] VITALS: BP 148/64; PULSE 80; RESP 17; TEMP 36.7; O2SAT 95
[2025-09-01 04:00] VITALS: BP 150/70; PULSE 68; RESP 16; TEMP 36.4; O2SAT 94
[2025-09-01 04:06] VITALS: RESP 18; O2SAT 96
[2025-09-01] MEDS: oxyCODONE 5 mg IR Tab/Cap PO ×2 (04:06→09:14)
[2025-09-01] MEDS: ceFAZolin 3,000 MG in sodium chloride 0.9% (plus) 100 ML 200 MG IV (04:07)
--- NOTE | 2025-09-01 08:11 | PM.DCS ---
Discharge Providers Date of Admission: 08/31/25 14:11 Date of Discharge: September 01, 2025 Attending Provider at Admission: Josue Medina DO Attending Provider at Discharge: Josue Medina DO Primary Care Provider: FELECIA Arellano Reason for Visit Reason for Visit: M54.12 Physical Exam Narrative: Patient doing well eating swallowing. Patient feels little bit of pain in his C6 distribution distally. When he puts a warm towel feels a lot better. Patient also had a IV in his left hand that ended up not in the vein causing significant swelling to his hand. Swelling is gone down at home to ice it. Urinary Catheter Management: Fay: Cath Placed During This Visit: yes Reason for Continuing Indwelling Catheter: Other Urinary Catheter Date of Insertion: 08/31/25 Discharge Data Studies Completed and Pending Completed Studies During Hospitalization Category Date Time Status XR cervical spine 3V* 13209 Routine Exams 08/31/25 15:28 Completed Pending at discharge Category Date Time Status C-arm Fluoroscopy 17411 Routine Exams 08/31/25 08:11 Taken Vitals Last Vital Signs Temp 97.6 F 09/01/25 04:00 Pulse 68 09/01/25 04:00 Resp 18 09/01/25 04:06 BP 150/70 09/01/25 04:00 Pulse Ox 96 09/01/25 04:06 O2 Del Method Room Air 09/01/25 04:00 O2 Flow Rate 6 08/31/25 14:08 Discharge Plan Discharge Patient Disposition: Home Condition: Stable Prescriptions: New oxycodone 5 mg tablet 5 mg PO Q4H PRN (Reason: pain) 7 Days Qty: 42 0RF Continued turmeric 400 mg capsule 400 mg PO DAILY multivitamin Tablet 1 tab PO DAILY cholecalciferol (vitamin D3) 25 mcg (1,000 unit) capsule 25 mcg PO DAILY omega 9-hds-sqm-fish oil [Fish Oil] 300-1,000 mg capsule 1 cap PO DAILY Discharge Order = DC NOW: Discharge Order (Routine); Ordered 09/01/25 Ordered By: Josue Medina Patient Instructions: Acute Wound Care (DC), Opioid Safety, Post Anesthesia Care, Patient Portal & Gerda Instructions Discharge Attestations Time Spent in Discharge Care*: less than 30 min Quality Metrics Clinical Quality Measures [ No reported AMI, CVA or VTE this stay] Coding Level of Care Code Acute Code for Chg Fwd
[2025-09-01 08:24] VITALS: BP 143/62; PULSE 64; RESP 17; TEMP 36.6; O2SAT 94
[2025-09-01 09:14] VITALS: RESP 17; O2SAT 94
--- NOTE | 2025-09-01 10:02 | PC.CHAP ---
Pastoral Care Encounter/Spiritual Assessment Type of Contact [] Declined cold patcher visit [] Patient/Family/Request visit [] Outpatient visit [] Follow-up visit [] Physician referral [] Code/Alert [x] Routine visit [] Staff referral [] Actively dying [] Patient sleeping [x] Family support [] [] Out of room [] Palliative care [] [] Receiving care in room [] Pre-surgical visit [] Trauma [] Long length of stay [] ICU visit [] Other: Relational/Emotional Strength [x] Patient feels connected with others/family/visitors/staff [] Distress [] Loneliness/isolation [] Abandonment Spirituality of Patient [x] Person of Stella [x] Attends Christianity of their Stella [x] Believes in Prayer [x] Reads Bible or Hinduism materials [] There are Spiritual issues to be addressed Cuffer Interventions [x] Prayer [x] Active listening [x] Non-anxious presence [x] Spiritual/emotional support [] Crisis/trauma care [] Spiritual counseling [] Bereavement support [] Provided bereavement packet [] Provided Bible/devotional materials [] Provided toy/stuffed animal, coloring book to patient or family member [] Provided Communion [] Anointing/Sagle [] Salvation [x] Completed spiritual assessment [] Other: Impact on Illness or Injury [] Angry [] Fearful [] Anxious [] Often cries [] Exhaustion [] Unable to work [] Unable to attend alevism [] Unable to walk/stand [] Unable to read [] Unable to drive [] Unable to eat/drink [] Unable to sleep [] Unable to be with family [] Patient intubated [] Other: Summary Time spent with patient 10 min
--- NOTE | 2025-09-01 10:46 | PC.NURSE ---
HEMOVAC removed by this nurse. Patient tolerated well. A new dressing was applied. Discharge paperwork discussed with patient and his . All questions answered. Patient safely wheeled out by nursing staff.
== END 2025-09-01 09:55 | disposition home or self-care (01) ==
LOC: MEDSURG 14:12
PROVIDERS: Admitting Provider Orthopaedic Surgery; PCP Nurse Practitioner Family; Visit Provider Orthopaedic Surgery
PROC: 0RB30ZZ Excision of Cervical Vertebral Disc, Open Approach (ICD-10-PCS; CPT 22551; principal; 2025-08-31 09:40)
DX: M48.02 Spinal stenosis, cervical region (principal); M54.12 Radiculopathy, cervical region; E66.01 Morbid (severe) obesity due to excess calories; Z68.41 Body mass index [BMI] 40.0-44.9, adult
CPT/HCPCS: 22551; 22552 ×2; 22853 ×3; 20930; 22845; 72040; 76000; 97110; 97161; A4649; C1713; C1763; C9359; G0378; J0330; J0690; J1100; J1885; J2250; J2405; J2704; J3010; J3490; J7030; J7120; J9999

== ENCOUNTER → 2025-10-18 13:38 | Outpatient (BNVA) | payer BC, MEDICAID, SELFPAY | PROVIDERS: PCP Nurse Practitioner Family; Visit Provider Orthopaedic Surgery | DX: Z98.890 Other specified postprocedural states (principal); Z98.1 Arthrodesis status | CPT/HCPCS: 72040 ==